=== PATIENT | male | born 1990 | race Caucasian/White ===

== ENCOUNTER 2025-07-17 10:56 | Emergency (ER) | payer BC ==
[~2025-07-17] VITALS: Ht 172.7 cm; Wt 61.7 kg
[2025-07-17 11:02] VITALS: BP 134/69
[2025-07-17 11:39] LABS: PLATELET COUNT (AUTO) 157 K/uL (152-348); RED BLOOD CELL COUNT(AUTO) 4.69 MIL/uL (4.06-5.63); RED CELL DISTRIBUTION WIDTH 13.0 % (12.1-16.2); WHITE BLOOD COUNT (AUTO) 5.8 K/uL (3.6-10.2)
[2025-07-17 11:47] LABS: CREATININE 0.8 mg/dL (0.6-1.3); SODIUM SERUM 143.0 mmol/L (136-145); UREA NITROGEN, BLOOD 8.0 mg/dL (7-18)
[2025-07-17 11:48] LABS: *BILIRUBIN,URIN NEGATIVE (NEGATIVE); *BLOOD, URINE NEGATIVE (NEGATIVE); *COLOR,URINE YELLOW (YELLOW); *KETONES,URINE 1+ (NEGATIVE); *PROTEIN,URINE 1+ (NEGATIVE); *UROBILINOGEN,URINE 0.2 E.U./dl (NORMAL); LEUKOCYTE ESTERASE ,URINE NEGATIVE (NEGATIVE); NITRITE, URINE NEGATIVE (NEGATIVE); UGLUCOSE NEGATIVE (NEGATIVE)
[2025-07-17 11:54] LABS: ASPARTATE AMINOTRANSFERASE 11.0 U/L (15-37); TOTAL PROTEIN, SERUM 7.4 g/dL (6.4-8.2)
[2025-07-17 11:58] LABS: *CLARITY,URINE SLIGHTLY HAZY (CLEAR)
[2025-07-17 11:59] LABS: URINE AMORPHOUS URATE MODERATE /HPF
[2025-07-17 12:41] VITALS: BP 135/66; O2SAT 98
== END 2025-07-17 12:43 | disposition home or self-care (01) ==
LOC: ER 10:56
DX: N50.812 Left testicular pain (principal); Z85.850 Personal history of malignant neoplasm of thyroid; Z88.0 Allergy status to penicillin; Z88.6 Allergy status to analgesic agent
CPT/HCPCS: 36415; 76870; 85025; 87086; A4606; A4663